=== PATIENT | male | born 1970 | race Caucasian/White ===

== ENCOUNTER → 2021-10-12 01:55 | Outpatient (CLI) | payer OTHER, SELFPAY ==
[2021-10-12 17:21] LABS: SARS-CoV-2 RNA PCR Negative
== END ==
PROVIDERS: PCP Internal Medicine; Visit Provider Internal Medicine Gastroenterology
DX: Z01.812 Encounter for preprocedural laboratory examination (principal); Z20.822 Contact with and (suspected) exposure to COVID-19
CPT/HCPCS: C9803; U0003; U0005

== ENCOUNTER 2021-10-15 02:32 | Day surgery (SDC) | payer OTHER, SELFPAY ==
[2021-10-04 11:49] VITALS: BMI 27.8
--- NOTE | 2021-10-14 09:53 | P.PNAN_ITS ---
Anes - Initial Pre Proc Eval Procedure: Operation Date: 10/15/21 08:00 Proposed Procedures p Screening Colonoscopy - Cory Saba MD Date/Time: 10/14/21 09:53 Surgeon: Cory Saba MD Pre Op Diagnosis: neoplasm screening Patient Data Age: 51 Gender: M Height: 1.78 m Weight: 88 kg Allergies Allergy/AdvReac Type Severity Reaction Status Date / Time No Known Allergies Allergy Verified 10/15/21 07:05 Home Medications Medication Instructions Recorded Confirmed Type No Home Medications 10/04/21 10/15/21 History Patient hx anesthesia problems: none Family hx anesthesia problems: none Results Review: All pre-operative results and documents have been reviewed as part of the pre-operative evaluation. [facility] Surgical History Surgical History (Updated 10/14/21 @ 09:53 by Tico Blake DO) History of repair of rotator cuff Social History Social History Smoking status: Never smoker Alcohol intake: current Alcohol use details: 2 drinks monthly Living arrangements: with family Spiritual care concerns: No Anes - Eval Final PreProcedure Day of Procedure 10/14/21 09:53 Patient weight: overweight Heart: regular rate and rhythm Lungs: clear to auscultation and normal air movement Airway: Mallampati scale class II Neurological: alert and oriented Last oral intake: >/= 8 hours ASA classification: I Emergent: no Anesthetic plan: proceed Anesthesia type and monitoring: general GIVS and standard monitoring Results Review: All pre-operative results and documents have been reviewed as part of the pre-operative evaluation. Informed Consent: The patient's anesthetic plan and its attendant risks and benefits were discussed with the patient/family/POA. Questions were solicited and answers provided to the satisfaction of the patient/family/POA.
[2021-10-15 06:56] VITALS: BP 115/85; PULSE 80; RESP 18; TEMP 36.7; O2SAT 100; BMI 27.3
[2021-10-15] MEDS: LACTATED RINGERS 1,000 ML 150 ML IV CONT (07:21)
--- NOTE | 2021-10-15 07:25 | WPDGICN ---
Assessment and Plan Assessment and plan (1) Encounter for screening colonoscopy: Code(s): Z12.11 - Encounter for screening for malignant neoplasm of colon Status: Acute Assessment and Plan: Patient presents for screening colonoscopy. Appears to be at average risk for colon polyps. Further recommendations will be given after endoscopy. GI Consult Note Consult date/time: 10/15/21 07:25 HPI: Nazario Ngo is a 51 year old male Presents for screening colonoscopy. Patient reports his current weight appetite and bowel movements are normal. He denies abdominal pain. He has had no bleeding. Family history is noncontributory. Patient presents today for neoplasia screening. Review of Systems Review of Systems: All systems reviewed & are unremarkable except as noted in HPI and below PMFSH Surgical History Surgical History (Updated 10/14/21 @ 09:53 by Tico Blake DO) History of repair of rotator cuff Social History Social History Smoking status: Never smoker Alcohol intake: current Alcohol use details: 2 drinks monthly Living arrangements: with family Spiritual care concerns: No Meds Home Medications and Allergies Home Medications Medication Instructions Recorded Confirmed Type No Home Medications 10/04/21 10/15/21 History Allergies Allergy/AdvReac Type Severity Reaction Status Date / Time No Known Allergies Allergy Verified 10/15/21 07:05 Vital Signs Vital Signs - 24 hr 10/15/21 06:56 Temperature 98.0 F Pulse Rate 80 Respiratory Rate 18 Blood Pressure 115/85 Pulse Oximetry 100 Exam Narrative: Physical exam reveals patient to be alert. Vital signs stable. HEENT exam is unremarkable. Patient is anicteric. Lungs are clear to auscultation and percussion. Heart is without murmur or extra sounds. Abdominal exam bowel sounds are present soft nontender with no hepatosplenomegaly. Digital external rectal exam is normal.
[2021-10-15 08:07] VITALS: BP 108/69; PULSE 72; RESP 17; O2SAT 95
[2021-10-15 08:17] VITALS: BP 109/65; PULSE 72; RESP 21; O2SAT 99
[2021-10-15 08:27] VITALS: BP 114/78; PULSE 70; RESP 19; O2SAT 99
== END 2021-10-15 08:39 | disposition home or self-care (01) ==
PROVIDERS: PCP Internal Medicine; Visit Provider Internal Medicine Gastroenterology
PROC: 0DJD8ZZ Inspection of Lower Intestinal Tract, Via Natural or Artificial Opening Endoscopic (ICD-10-PCS; CPT 45378; principal; 2021-10-15 08:00)
DX: Z12.11 Encounter for screening for malignant neoplasm of colon (principal); K64.8 Other hemorrhoids; K57.30 Diverticulosis of large intestine without perforation or abscess without bleeding
CPT/HCPCS: 45378; C9803; J2704; J7120; U0003; U0005

== ENCOUNTER 2023-01-14 09:30 | Emergency (ER) | payer OTHER, SELFPAY ==
[2023-01-14 09:43] VITALS: BP 137/93; PULSE 92; RESP 16; TEMP 37; O2SAT 99
--- NOTE | 2023-01-14 09:55 | ED.SKABFB ---
HPI - Skin/Abscess/Foreign Bdy General Chief complaint: Eye Problems Stated complaint: RASH/EYE REDNESS/BURNING Time Seen by Provider: 01/14/23 09:50 Source: patient Mode of arrival: ambulatory Limitations: no limitations History of Present Illness HPI narrative: Nazario is a 52-year-old male patient presenting to the clinic today with complaints of a rash to his bilateral arms and left chest wall that he thinks may be poison tiffany. He also reports that he be seen the sales department supervisor yesterday for a corneal abrasion and was given a steroid drop to use. States that he he had a lot of tearing and watering of the eye last night and states that he has had corneal scratches before and they have not lasted this long. Related Data Allergies Allergy/AdvReac Type Severity Reaction Status Date / Time No Known Allergies Allergy Verified 01/14/23 09:51 Review of Systems Review of Systems: Pertinent positives per HPI. Patient denies any fever, chills, headache, visual changes, dizziness, cough, runny nose, sore throat, shortness of breath, chest pain, palpitations, nausea, vomiting, diarrhea, constipation, abdominal pain, or any urinary issues. [facility] Past Medical History Medical History Annual physical exam Establishing care with new doctor, encounter for Insomnia Screening for cholesterol level Screening for prostate cancer Surgical History Surgical History History of repair of rotator cuff Hx of tonsillectomy Family History Family History Father Non-Hodgkin lymphoma Social History Social History Smoking status: Never smoker Alcohol intake: current Alcohol use details: 2 drinks monthly Substance use: never Lack of Transportation: No Lack of Food: Never True Current Housing: I Have Housing Concerned About Future Housing: No Difficulty Paying Gas/Electric Bills: No Difficulty Paying for Meds: No Currently Unemployed: No Education: Don't Know Living arrangements: with family Occupation/Education: occupation Spiritual care concerns: No Comments At the time of my signature, I reviewed and agree with the nursing past medical, surgical, social, and family history. There is no relevant family history pertinent to the patient complaint. Exam Narrative: General: Well-developed, well nourished, in no apparent distress Head: Normocephalic, atraumatic Eyes: Pupils equally round and reactive to light bilaterally, EOM intact, left sclera and conjunctive clear, right sclera and conjunctiva mildly injected, watery discharge, lids normal. No visualized foreign body in the right eye Ears: TMs intact and clear, ear canals clear, no drainage, grossly hearing normal. Nose: Nares patent, no discharge, no inflammation, no sinus tenderness. Mouth: Oropharynx without lesions or masses, good dentition, MMM. Neck: Supple, trachea midline, no enlargement of anterior or posterior cervical nodes, no thyroid masses or goiter palpable. Cardio: Regular rate and rhythm, s1 and s2 normal, no murmur appreciated. Resp: Clear to auscultation bilaterally anteriorly and posteriorly, no rhonchi, rales, wheezing or rubs Integumentary: Cel[place], warm, and dry, intact without lesion, red, raised, itchy, blister like lesions to the bilateral volar aspect of forearms and the left chest wall Course Course Emergency Course: Portions of this record may have been created with voice recognition software. Level of Care: Express Care Visit Vital Signs Vital signs: Vital Signs Temperature 37.0 C 01/14/23 09:43 Pulse Rate 92 01/14/23 09:43 Respiratory Rate 16 01/14/23 09:43 Blood Pressure 137/93 H 01/14/23 09:43 Pulse Oximetry 99 01/14/23 09:43 Temperature 37.0 C
== END 2023-01-14 10:22 | disposition home or self-care (01) ==
PROVIDERS: Emergency Provider Nurse Practitioner Family; PCP Family Medicine
DX: L23.7 Allergic contact dermatitis due to plants, except food (principal); S05.01XA Injury of conjunctiva and corneal abrasion without foreign body, right eye, initial encounter; X58.XXXA Exposure to other specified factors, initial encounter
CPT/HCPCS: 96372; 99213; G0463; J1100